=== PATIENT | female | born 1985 | race African-American/Black ===

== ENCOUNTER 2019-05-16 13:36 | Emergency (ER) | payer OTHER ==
[~2019-05-16 13:36] MED LIST: AZITHROMYCIN 2250 MG PO; BUTALB-APAP-CA1 EACH PO; CITRATE OF MAG296 ML PO; CLARINEX-D 241 EACH PO; DEPO-PROVER150 MG/M1 IM; DIFLUCAN150 MG PO; KEFLEX500 MG PO; LORTAB 5 MG/5001 TAB PO; PRENATAL
[2019-05-16 14:12] LABS: ABSOLUTE NEUTROPHILS 1.4 thou/uL (1.4-8.2); BASOPHILS 1.2 % (0.0-2.0); EOSINOPHILS 1.6 % (0.0-3.0); HEMATOCRIT 37.8 % (37.0-47.0); HEMOGLOBIN 12.2 gm/dL (12.0-15.0); LYMPHOCYTES 52.3 % (24.0-44.0); MCH 26.5 pg (26.0-34.0); MCHC 32.4 g/dL (28.0-37.0); MCV 81.6 fL (80.0-100.0); MONOCYTES 10.7 % (1.0-8.0); PLATELET COUNT 290 thou/uL (150-400); POLYS 34.2 % (36.0-66.0); RBC 4.63 mil/uL (4.20-5.00); RDW 14.8 % (10.5-14.5); WBC 3.9 thou/uL (4.0-11.0)
[2019-05-16 14:31] LABS: CALCIUM 9.2 mg/dL (8.5-10.1); CREATININE 0.8 mg/dL (0.6-1.0); POTASSIUM 3.7 mmol/L (3.5-5.1)
== END 2019-05-16 17:00 | disposition left against medical advice (07) ==
LOC: ER 13:36
PROVIDERS: Emergency Medicine
DX: Z53.21 Procedure and treatment not carried out due to patient leaving prior to being seen by health care provider (principal)

== ENCOUNTER 2021-01-16 17:21 | Emergency (ER) | payer OTHER ==
[2021-01-16 17:30] VITALS: BP 127/84
== END 2021-01-16 19:25 | disposition home or self-care (01) ==
LOC: ER 17:21
DX: U07.1 COVID-19 (principal); G43.909 Migraine, unspecified, not intractable, without status migrainosus; Z79.899 Other long term (current) drug therapy